=== PATIENT | female | born 1960 | race Caucasian/White ===

== ENCOUNTER 2025-06-10 12:23 | Outpatient (CLI) | payer BC, SELFPAY ==
[2025-06-10 12:42] LABS: Hematocrit 38.6 % (37.0-47.0); Hemoglobin 13.0 g/dL (12.2-16.2); Immature Granulocytes % 0.2 %; Mean Corpuscular HGB Conc 33.7 g/dL (31.8-35.4); Mean Corpuscular Hemoglobin 31.5 pg (27.0-31.2); Mean Corpuscular Volume 93.5 fl (81-99); Nucleated Red Blood Cells % 0 %; Platelet Count 262 K/mm3 (142-424); Red Blood Count 4.13 M/mm3 (4.20-5.40); Red Cell Distribution Width-SD 46.7 fL; White Blood Count 5.6 K/mm3 (4.8-10.8)
[2025-06-10 13:17] LABS: Albumin Level 4.4 g/dl (3.5-5.0); Chloride 109 mmol/L (98-107); Potassium 4.4 mmoL/L (3.5-5.1); Sodium 141 mmol/L (136-145)
[2025-06-10 13:19] LABS: Alanine Aminotransferase 22 U/L (12-78); Aspartate Amino Transferase 35 U/L (14-36); Blood Urea Nitrogen 14 mg/dl (7-17); Creatinine,Serum 0.50 mg/dl (0.52-1.04); Estimated Glomerular Filt Rate 124 ml/min (>60); GFR (African American) 150 ML/MIN (>60)
[2025-06-10 13:20] LABS: Albumin/Globulin Ratio 1.5 (1.1-1.8); Alkaline Phosphatase 101 U/L (38-126); Anion Gap 11.4 mEq/L (5-15); Bilirubin,Total 0.5 mg/dl (0.2-1.3); Calcium 9.3 mg/dl (8.4-10.2); Carbon Dioxide 25 mmol/L (22.0-30.0); Cholesterol 184 mg/dl (140-200); Globulin 2.9 g/dL (1.3-3.2); Glucose 93 mg/dl (74-100); HDL Cholesterol 51 mg/dl (40-60); Total Protein,Serum 7.3 g/dl (6.3-8.2); Triglycerides 84 mg/dl (30-150)
[2025-06-10 13:26] LABS: C-Reactive Protein 5.0 mg/L (0-4)
[2025-06-10 13:51] LABS: Thyroid Stimulating Hormone 0.94 uIU/mL (0.465-4.68)
[2025-06-10 14:51] LABS: 25-OH Vitamin D, Total 39.6 ng/mL (30-100)
[2025-06-10 15:10] LABS: Hemoglobin A1C 5.5 % (4.0-6.0)
[2025-06-10 15:57] LABS: Vitamin B12 589 pg/mL (239-931)
== END 2025-06-10 23:59 | disposition home or self-care (01) ==
PROVIDERS: PCP Nurse Practitioner Family; Visit Provider Nurse Practitioner Family
DX: I71.9 Aortic aneurysm of unspecified site, without rupture (principal); R73.03 Prediabetes; R03.0 Elevated blood-pressure reading, without diagnosis of hypertension; R63.5 Abnormal weight gain
CPT/HCPCS: 36415; 80053; 80061; 82306; 82607; 83036; 84443; 85025; 86140

== ENCOUNTER 2025-07-18 12:39 | Outpatient (CLI) | payer BC, SELFPAY ==
--- NOTE | 2025-07-18 12:47 | XR_ITS ---
FINAL REPORT CLINICAL HISTORY: left knee pain. medial sided pain COMPARISON: None FINDINGS: LEFT KNEE 3 views of the left knee were obtained. There is no acute fracture or dislocation. Visualized joint spaces are normally aligned. Soft tissues are unremarkable. IMPRESSION: No acute bony abnormality. Reviewed, Interpreted and Dictated by Brenden Sykes MD Transcribed by Katherine Howell Authenticated and [facility]
--- NOTE | 2025-07-18 13:00 | CA_ITS ---
FINAL REPORT TECHNIQUE: Ultrasound images of the deep venous system were obtained from the left groin to the calf veins. CLINICAL HISTORY: Left medial thigh and knee pain with tightness COMPARISON: None FINDINGS: The deep venous system of the left lower extremity is normally compressible. Normal flow is identified. IMPRESSION: No evidence of left lower extremity DVT. Reviewed, Interpreted and Dictated by Brenden Sykes MD Transcribed by Deborah Velasquez Authenticated and [facility]
== END 2025-07-18 23:59 | disposition home or self-care (01) ==
LOC: RT 12:40
PROVIDERS: PCP Nurse Practitioner Family; Visit Provider Nurse Practitioner Family
DX: M79.662 Pain in left lower leg (principal); M79.89 Other specified soft tissue disorders; M25.562 Pain in left knee
CPT/HCPCS: 73562; 93971

== ENCOUNTER 2025-08-29 12:44 | Outpatient (CLI) | payer BC, SELFPAY ==
--- NOTE | 2025-08-29 13:00 | MR_ITS ---
FINAL REPORT CLINICAL HISTORY: left lateral knee pain that radiates down the leg. FINDINGS: Multiplanar MR imaging of the left lower leg was performed without contrast. There is marrow edema of the proximal tibia described on the left knee MRI. There is no fracture or stress injury of the tibial shaft. Fibula is unremarkable. No bony mass is identified. The musculature is intact. Soft tissue signal is unremarkable. There is nonspecific, mild subcutaneous edema. Extensive varicosities are seen primarily of the lateral calf. IMPRESSION: 1. No evidence of soft tissue mass, fluid collection or hematoma. 2. No acute osseous abnormality. Reviewed, Interpreted and Dictated by Radhika Spain MD Transcribed by Pratima Patiño Authenticated and [facility]
--- NOTE | 2025-08-29 14:00 | MR_ITS ---
FINAL REPORT TECHNIQUE: Multiplanar MR left knee without contrast CLINICAL HISTORY: left lateral knee pain and swelling pain inferior to patella swelling marked with bb 3 weeks FINDINGS: Articular cartilage: Severe thinning of the medial compartment. Mild thinning of the lateral compartment. Marrow signal: Significant marrow edema of the tibial plateau and medial femoral condyle, likely arthritic. No contusion or fracture seen. Joint fluid: Moderate-sized joint effusion. Menisci: Moderate-sized oblique tear of the posterior horn of the medial meniscus. Lateral meniscus is intact. Ligaments: Collateral, cruciate and patellofemoral ligaments intact Tendons: Quadriceps tendinosis. Patellar tendon unremarkable. Pez anserine bursitis noted. 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 Oblique tear of the posterior horn of the medial meniscus. Pes anserine bursitis. Reviewed, Interpreted and Dictated by Radhika Spain MD Transcribed by Pratima Patiño Authenticated and [facility]
== END 2025-08-29 23:59 | disposition home or self-care (01) ==
PROVIDERS: PCP Nurse Practitioner Family; Visit Provider Nurse Practitioner Family
DX: S83.242A Other tear of medial meniscus, current injury, left knee, initial encounter (principal); M17.12 Unilateral primary osteoarthritis, left knee; M70.52 Other bursitis of knee, left knee; M79.662 Pain in left lower leg; M79.89 Other specified soft tissue disorders
CPT/HCPCS: 73718; 73721